=== PATIENT | female | born 1950 | race Caucasian/White ===

== ENCOUNTER 2018-03-29 06:22 | Observation (INO) | payer OTHER ==
[2018-03-26 08:32] LABS: BASOPHILS # (AUTO) 0.1 (0.0-0.1); BASOPHILS % 0.9 % (0.0-1.0); EOSINOPHILS # (AUTO) 0.1 (0.0-0.4); EOSINOPHILS % 1.7 % (0.0-6.0); HEMOGLOBIN 13.3 g/dL (12.0-16.0); LYMPHOCYTES # (AUTO) 1.9 (1.0-3.2); LYMPHOCYTES % 29.1 % (18.0-39.1); MEAN CORPUSCULAR HEMOGLOBIN 30.7 pg (28-32); MEAN CORPUSCULAR HGB CONC 34.1 g/dL (31-35); MEAN CORPUSCULAR VOLUME 90.1 fL (81-99); MONOCYTES # (AUTO) 0.7 (0.2-0.8); MONOCYTES % 11.2 % (4.4-11.3); NEUTROPHILS # (AUTO) 3.7 (2.1-6.9); NEUTROPHILS % 56.8 % (38.7-80.0); PLATELET COUNT 220 x10e3/uL (140-360); RED BLOOD COUNT 4.33 x10e6/uL (3.6-5.1)
--- NOTE | 2018-03-26 08:44 | Diagnostic Imaging Report ---
PROCEDURE: X-RAY CHEST, TWO VIEWS COMPARISON: 02/03/2017. INDICATIONS: PRE-OPERATIVE CHEST X-RAY FOR RT. KNEE SURGERY FINDINGS: Lungs are well-inflated. 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 No consolidation, pleural effusion, or pneumothorax. Stable cardiomediastinal contour. No pulmonary edema. No acute osseous abnormality. Multilevel degenerative disc changes of the thoracic spine. CONCLUSION: No acute thoracic abnormality. Dictated by: Eliecer Vargas M.D. on 03/26/2018 at 8:48 Electronically approved by: Eliecer Vargas M.D. on 03/26/2018 at 8:48
[2018-03-26 08:47] LABS: ANION GAP 13.5 mmol/L (8-16); CALCIUM 9.7 mg/dL (8.4-10.2); CREATININE, SERUM 1.01 mg/dL (0.57-1.11); POTASSIUM 4.5 mmol/L (3.5-5.1)
[~2018-03-29] VITALS: Ht 172.7 cm; Wt 112.0 kg
[~2018-03-29 06:22] MED LIST: CEFAZOLIN SOD 2 GM/D5W 50ML 50 ML IV ONE; CELECOXIB 200 MG CAP ONE; DEXAMETHASONE SOD PHOS 10 MG/1 ML VIAL ONE; FLUOXETINE HCL20 MG PO; GABAPENTIN 300 MG CAP ONE; JANUMET 50-1,01 EACH PO; LISINOPRIL-HCT1 EACH PO; METOPROLOL SUCC25 MG PO; NOVOLIN 70100 UNITS/ SQ; PRAVASTATIN SOD40 MG PO; ROPIVACAINE 246.25 MG, EPINEPHRINE HCL 1:1000 0.5 MG, CLONIDINE HCL 0.08 MG, KETOROLAC ... INJ ONE
[2018-03-29] MEDS ORDERED: BACITRACIN ZINC 15 GM OINT ONE (06:25)
[2018-03-29] MEDS ORDERED: TRANEXAMIC ACID 1,000 MG/10 ML ML ONE (06:25)
--- OUTSIDE RECORDS SUMMARY | 2018-03-29 06:25 | XMS REPORT ---
Author Author [facility] Address Unknown Phone Unavailable Care Team Providers Care English Drawer Name Role Phone ELIECER BHATIA Unavailable Unavailable Problems This patient has no known problems. Allergies, Adverse Reactions, Alerts This patient has no known allergies or adverse reactions. Medications This patient has no known medications. Results Test Description Test Time Test Comments Text Results Atomic Results Result Comments CHEST 2 VIEWS 2018-03-26 08:48:00 [place] [id number] Patient Name: BRIDGETT HARDY MR #: [id number] : 1950 Age/Sex: 67/F Req #: [id number] [facility] Physician: Ordered by: ELIECER BHATIA MD Report #: [id number] Location: OR Room/Bed: Procedure: [id number] DX/CHEST 2 VIEWS Exam Date: 03/26/18 Exam Time: 0820 REPORT STATUS: Signed PROCEDURE: X-RAY CHEST, TWO VIEWS COMPARISON: 02/03/2017. INDICATIONS: PRE-OPERATIVE CHEST X-RAY FOR RT. KNEE SURGERY FINDINGS: Lungs are well-inflated. 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 No consolidation, pleural effusion, or pneumothorax. Stable cardiomediastinal contour. No pulmonary edema. No acute osseous abnormality. Multilevel degenerative disc changes of the thoracic spine. CONCLUSION: No acute thoracic abnormality. Dictated by: Eliecer Julien M.D. on 03/26/2018 at 8:48 Electronically approved by: Eliecer Julien M.D. on 03/26/2018 at 8:48 Dictated By: ELIECER JULIEN MD 7 Transcribed By: JOHN on 03/26/18847 COPY TO: ELIECER BHATIA MD
[2018-03-29] MEDS ORDERED: BACITRACIN 50,000 UNIT VIAL ONE (06:26)
[2018-03-29] MEDS ORDERED: HYDROCODONE/APAP 5MG-325MG TAB PO PRN (08:30)
[2018-03-29] MEDS ORDERED: PROMETHAZINE HCL (IM) 25 MG/ML VIAL IM PRN (08:30)
[2018-03-29] MEDS ORDERED: ACETAMINOPHEN 650 MG SUPP PR PRN (08:30)
[2018-03-29] MEDS ORDERED: DOCUSATE SODIUM 100 MG CAP PO PRN (08:30)
[2018-03-29] MEDS ORDERED: DIPHENHYDRAMINE HCL INJ 50 MG/ML VIAL IM/IV PRN (08:30)
[2018-03-29] MEDS ORDERED: ONDANSETRON HCL INJ 2 MG/ML VIAL IV PRN (08:30)
[2018-03-29] MEDS ORDERED: KETOROLAC TROMETHAMINE 30 MG/ML VIAL IV PRN (08:30)
[2018-03-29] MEDS ORDERED: FENTANYL CITRATE/PF 100MCG/2 ML INJ ONE ×3 (08:49→14:50)
--- NOTE | 2018-03-29 09:05 | Diagnostic Imaging Report ---
PROCEDURE:KNEE RIGHT 1-2 VIEWS TECHNIQUE:AP and crosstable lateral views right knee INDICATION:Postoperative evaluation COMPARISON:None. FINDINGS: See conclusion. CONCLUSION: 1. Total right knee arthroplasty intact and in anatomic alignment. 2. Expected regional postsurgical changes including soft tissue swelling, joint gas and fluid, and overlying surgical gilson. 3. No acute abnormality. Dictated by: Juan Ramon Sanders M.D. on 03/29/2018 at 9:09 Electronically approved by: Juan Ramon Sanders M.D. on 03/29/2018 at 9:09
[2018-03-29 12:11] VITALS: BP 118/57
[2018-03-29] MEDS: ACETAMINOPHEN 1000 MG/100 ML IV SCH ×2 (12:11→17:41)
[2018-03-29 12:14] VITALS: BP 118/57
[2018-03-29 12:18] VITALS: BP 118/57
[2018-03-29] MEDS ORDERED: INSULIN ASPART 70/30 100 UNITS/ML VIAL ONE (12:42)
[2018-03-29] MEDS ORDERED: INSULIN ASPART 70/30 100 UNITS/ML VIAL SC ONE (12:45)
[2018-03-29 13:36] VITALS: BP 118/57
[2018-03-29] MEDS ORDERED: CEFAZOLIN SOD 1 GM/NS 50ML 50 ML IV SCH (14:00)
[2018-03-29] MEDS: CEFAZOLIN SOD 1 GM VIAL IV SCH ×2 (14:05→22:00)
[2018-03-29] MEDS ORDERED: ROPIVACAINE 0.5% 5 MG/ML 30 ML SDV ONE (14:37)
[2018-03-29] MEDS ORDERED: LIDOCAINE 2%/ EPINEPHRINE 20ML MDV ONE (14:37)
--- NOTE | 2018-03-29 14:41 | Operative Report ---
DATE OF PROCEDURE: March 29, 2018 SENIOR NET ENGINEER: Kendall Garrett PA-C The patient was brought to the operating room for induction of anesthesia. Throughout this case, my PA's assistance was necessary for retraction of soft tissue and positioning of the extremity. This allows for efficient and technically successful execution of the operation and is considered medically necessary. PREOPERATIVE DIAGNOSIS: Osteoarthritis, right knee. POSTOPERATIVE DIAGNOSIS: Osteoarthritis, right knee. PROCEDURE: Right total knee arthroplasty. INDICATIONS: The patient is a 67-year-old lady who has severe arthritis in her right knee. She has failed conservative management and would like to proceed with a right total knee replacement. The risks and benefits have been discussed. The added challenges due to her physical deconditioning and BMI of over 37 have been discussed. She states she understands and wishes to proceed. DESCRIPTION OF PROCEDURE: The patient was brought to the operating room and placed under general anesthetic. She received prophylactic antibiotics, a regional block, and tranexamic acid the holding area. Her right lower extremity was prepped and draped in a sterile manner. A preoperative time-out was performed. The extremity was exsanguinated and a proximal tourniquet was inflated to 300 mmHg. An anterior approach with a medial parapatellar arthrotomy was performed. Soft tissue releases were performed to bring the knee up into flexion with the patella everted. The remnants of the cruciate ligaments were sacrificed. A [employer] Lorie II posterior stabilized knee system was used throughout the case. Meniscal remnants and marginal osteophytes were removed. An extramedullary cutting guide was used to resect the proximal tibia. The tibial baseplate was a size #6. The central fin punch was impacted and attention was directed towards the distal femur. An intramedullary cutting guide was used to resect the distal femur in 6 degrees of valgus and rotation referenced off of a combination of landmarks including Whitesides line, the epicondylar axis, and the posterior condyles. Some element of posterior lateral hypoplasia was taken into account. The femoral component was also a size #6. The anterior and posterior cuts were made. The notch cut was made. Trial reductions were performed. There was excessive lateral tension. A lamina wet press tender was placed and a #11 blade surgical knife was used to pie crust the iliotibial band and release lateral soft tissues to balance the knee. A 9-mm posterior stabilized tibial insert provided optimal soft tissue balancing from full extension to 90 degrees of flexion. The patella was then resurfaced with a 32 mm x 9 mm patellar button. The thickness was checked before and after resurfacing and was right at 23 mm. Patellar tracking was noted to be concentric. The trial implants were then all removed. A 100 mL premixed pericapsular TIKI injection was placed into the surrounding soft tissue. The knee was thoroughly irrigated with a shower-tip pulsatile lavage. The components were cemented into place using a single mix of PALACOS cement pre-loaded with antibiotics. Care was taken to remove extravasated cement. The wound was further irrigated with the pulsatile lavage while the cement cured. The arthrotomy was then closed with interrupted #1 Ethibond. The knee was put through flexion and extension to ensure secure closure. The skin was closed with subcuticular Vicryl and gilson. A sterile bandage was applied. The patient was extubated and transported to the recovery room in stable condition. Blood loss was minimal. All needle and sponge counts were correct. Job#: [id number] MARCELO
[2018-03-29] MEDS ORDERED: MIDAZOLAM HCL 2 MG/2 ML VIAL ONE (14:50)
[2018-03-29] MEDS: CELECOXIB 100 MG CAP PO SCH (17:00)
[2018-03-29] MEDS: ASPIRIN 325 MG TAB PO SCH (17:00)
[2018-03-29] MEDS ORDERED: DEXTROSE 50% SYRINGE 50 ML IV PRN (17:00)
[2018-03-29 17:15] VITALS: BP 136/65
[2018-03-29] MEDS: SITAGLIPTIN 100 MG TAB PO SCH (17:38)
[2018-03-29] MEDS: METFORMIN HCL 500 MG TAB CR PO SCH (17:38)
[2018-03-29] MEDS: METOPROLOL SUCCINATE 25 MG TAB XL PO SCH (17:39)
[2018-03-29] MEDS: INSULIN LISPRO 100 UNIT/1 ML 3ML VIAL SQ SCH ×2 (17:39→21:00)
[2018-03-29] MEDS ORDERED: SEVOFLURANE INHAL SOLN 250 ML PEN BTL ONE (18:08)
[2018-03-29] MEDS ORDERED: LIDOCAINE HCL 2% LOCAL INJ 5 ML SDV VIAL INJ ONE (18:08)
[2018-03-29] MEDS ORDERED: DEXAMETHASONE SOD PHOS INJ 4 MG/ML VIAL ONE (18:08)
[2018-03-29] MEDS ORDERED: ACETAMINOPHEN 1000 MG/100 ML IV ONE (18:08)
[2018-03-29] MEDS ORDERED: PROPOFOL IV EMULSION 10 MG/ML 20 ML VIAL ONE (18:08)
[2018-03-29] MEDS ORDERED: ONDANSETRON HCL INJ 2 MG/ML VIAL ONE (18:08)
[2018-03-29 20:00] VITALS: BP 103/58
[2018-03-29] MEDS ORDERED: INSULIN LISPRO 100 UNIT/1 ML 3ML VIAL SQ SCH (21:00)
[2018-03-29] MEDS ORDERED: ZOLPIDEM TARTRATE 5 MG TAB PO PRN (21:00)
[2018-03-29] MEDS ORDERED: INSULIN ASPART 70/30 100 UNITS/ML VIAL SC SCH (21:00)
[2018-03-29] MEDS ORDERED: INSULIN REGULAR, HUMAN 100 UNIT/1 ML 3ML VIAL SQ SCH (21:00)
[2018-03-29] MEDS ORDERED: [UNRECOGNIZED DRUG - OTHER] SQ SCH (21:00)
[2018-03-29] MEDS ORDERED: INSULIN ISOPHANE SQ SCH (21:00)
[2018-03-30] VITALS: BP 111/56
[2018-03-30] MEDS: ACETAMINOPHEN 1000 MG/100 ML IV SCH ×2 (00:18→06:00)
[2018-03-30] MEDS: HYDROCODONE/APAP 7.5MG-325MG 1 EA TAB PO PRN ×2 (03:24→13:18)
[2018-03-30 04:00] VITALS: BP 106/53
[2018-03-30] MEDS: CEFAZOLIN SOD 1 GM VIAL IV SCH (06:06)
[2018-03-30 06:39] LABS: HEMATOCRIT 33.2 % (34.2-44.1); HEMOGLOBIN 11.5 g/dL (12.0-16.0)
[2018-03-30 08:00] VITALS: BP 107/56
[2018-03-30] MEDS: METOPROLOL SUCCINATE 25 MG TAB XL PO SCH (08:17)
[2018-03-30] MEDS ORDERED: ACETAMINOPHEN 1000 MG/100 ML IV PRN (08:30)
[2018-03-30] MEDS: SITAGLIPTIN 100 MG TAB PO SCH (08:33)
[2018-03-30] MEDS: CELECOXIB 100 MG CAP PO SCH (08:33)
[2018-03-30] MEDS: ASPIRIN 325 MG TAB PO SCH (08:33)
[2018-03-30] MEDS: METFORMIN HCL 500 MG TAB CR PO SCH (08:33)
[2018-03-30] MEDS: INSULIN LISPRO 100 UNIT/1 ML 3ML VIAL SQ SCH ×2 (08:34→11:30)
[2018-03-30] MEDS ORDERED: INSULIN ASPART 70/30 100 UNITS/ML VIAL SC SCH (09:00)
[2018-03-30] MEDS ORDERED: LISINOPRIL 20 MG TAB PO SCH (09:00)
[2018-03-30] MEDS ORDERED: INSULIN ISOPHANE SQ SCH (09:00)
[2018-03-30] MEDS ORDERED: FLUOXETINE HCL 20 MG CAP PO SCH (09:00)
[2018-03-30] MEDS ORDERED: [UNRECOGNIZED DRUG - OTHER] SQ SCH (09:00)
[2018-03-30] MEDS ORDERED: HYDROCHLOROTHIAZIDE 25 MG TAB PO SCH (09:00)
[2018-03-30 09:03] VITALS: BP 107/56
[2018-03-30 11:50] VITALS: BP 117/55
[2018-03-30] MEDS ORDERED: ASPIRIN325 MG PO (12:54)
[2018-03-30] MEDS ORDERED: NORCO 10-325 T1 EACH PO (13:00)
== END 2018-03-30 13:22 | disposition home health service (06) ==
LOC: OR 06:22 → MED/SURG 11:27
PROVIDERS: ADMIT Specialist; ATTEND Specialist
DX: M17.11 Unilateral primary osteoarthritis, right knee (principal); I10 Essential (primary) hypertension; E11.9 Type 2 diabetes mellitus without complications; Z85.828 Personal history of other malignant neoplasm of skin; E78.5 Hyperlipidemia, unspecified; Z79.4 Long term (current) use of insulin
CPT/HCPCS: 27447; 36415 ×3; 71046; 73560; 80048; 82948 ×2; 85014; 85018; 85025; 86850; 86900; 86920; 97116; 97161; 97530; G0378 ×2; G8981; G8982; J0171; J0690 ×2; J1100 ×2; J1815; J1885 ×2; J2001 ×2; J2250; J2405; J2795